=== PATIENT | female | born 1980 | race Caucasian/White ===

== ENCOUNTER 2017-09-22 07:48 | Outpatient (CLI) | payer BC ==
[2017-09-22] MEDS ORDERED: Iopamidol 370 76% 100 ML VIAL ONE (11:52)
--- NOTE | 2017-09-22 11:53 | CT ---
CT ANGIOGRAM NECK WITH CONTRAST: 09/22/2017 8:53 a.m. HISTORY: A 36-year-old female with near syncope (R55). COMPARISON: None. TECHNIQUE: IV contrast bolus injection of 100 mL of Isovue-370. Arterial bolus chasing technique scan performed from 3 cm inferior to the montez to the level of the mid-upper orbits. Coronal and sagittal 3D MIP reconstructions. FINDINGS: No calcified or noncalcified significant atherosclerotic plaque is visualized. The aortic arch, and the brachiocephalic, left subclavian, bilateral common carotid, bilateral internal carotid, and bilat eral vertebral, arteries are of normal caliber, with no stenosis or dissection. Segments of the mid and distal right subclavian artery are obscured by streak artifact from contrast bolus in the adjacen t right subclavian vein. The proximal right subclavian artery is of normal caliber. There is no ano radha of great vessel origins. The lung apices are clear. No major osseous abnormality. No gross ab normality of the soft tissues of the neck identified. IMPRESSION: Normal. POS: BIBI
== END 2017-09-22 07:49 | disposition home or self-care (01) ==
LOC: CT 07:48
PROVIDERS: ATTEND Psychiatry & Neurology Neurology
DX: R55 Syncope and collapse (principal)
CPT/HCPCS: 70498

== ENCOUNTER 2018-02-13 20:36 | Inpatient (IN) | payer BC ==
[2018-02-13 21:28] LABS: #Basophils 0.1 thou/uL (0.0-0.2); #Eosinphils 0.3 thou/uL (0.0-0.7); #Lymphocytes 3.6 thou/uL (1.20-3.40); #Monocytes 0.8 thou/uL (0.11-0.59); #Neutrophils 5.6 thou/uL (1.40-6.50); %Basophils 0.8 % (0.0-1.0); %Eosinophils 2.5 % (0.0-10.0); %Lymphocytes 34.9 % (21.0-51.0); %Monocytes 7.8 % (0.0-10.0); Hemoglobin 12.8 g/dL (12.0-16.0); Mean Corpuscular HGB CONC 32.9 g/dL (32.0-36.0); Mean Corpuscular Hemoglobin 29.3 pg (27.0-31.0); Mean Corpuscular Volume 88.8 fL (78.0-98.0); Mean Platelet Volume 9.8 fL (7.4-10.4); Platelet Count 275 thou/uL (130-400); RBC Distribution Width 12.4 % (11.5-14.5); Red Blood Cell (RBC) Count 4.37 mill/uL (4.20-5.40); White Blood Cell (WBC) Count 10.3 thou/uL (4.8-10.8)
[2018-02-13 21:32] LABS: BHCG - Serum Negative (NEGATIVE); Pregs Control Background? CLEAR/WHITE (CLR/WHITE); Pregs Control Bar Appear? YES (CONTROL BAR)
[2018-02-13 21:50] LABS: ALT (SGPT) 15 U/L (8-55); AST (SGOT) 19 U/L (5-34); Albumin 4.5 g/dL (3.5-5.0); Alkaline Phosphatase 100 U/L (40-150); Anion Gap 14 mmol/L (10-20); BUN (Urea Nitrogen) 11 mg/dL (7.0-18.7); Bilirubin, Total 0.2 mg/dL (0.2-1.2); Calc. Creatinine Clearance 0 mL/min (70-130); Calcium 9.4 mg/dL (7.8-10.44); Carbon Dioxide 22 mmol/L (22-29); Chloride 108 mmol/L (98-107); Estimated GFR-MDRD 86; Globulin 3.8 g/dL (2.4-3.5); Glucose 73 mg/dL (70-105); Lipase 57 U/L (8-78); Potassium 3.9 mmol/L (3.5-5.1); Protein, Total 8.3 g/dL (6.0-8.3); Sodium 140 mmol/L (136-145)
[2018-02-13 21:53] LABS: Bilirubin Negative (Negative); Blood, Urine Negative (Negative); Clarity CLEAR (Clear); Glucose, Urine (Dipstick) Negative (Negative); Leukocyte Negative (Negative); Nitrite Negative (Negative); Protein, Urine (Dipstick) Negative (Neg-Trace); Specific Gravity, Urine 1.007 (1.002-1.036); Urobilinogen 0.2 mg/dL (0.2-1.0)
--- NOTE | 2018-02-13 23:13 | CT ---
CT ABDOMEN AND PELVIS WITH CONTRAST: HISTORY: Seven days of abdominal bloating and abdominal pain. TECHNIQUE: Multiple contiguous axial images were obtained in a CT of the abdomen and pelvis with contrast, Cont rast was administered p.o. Coronal reformats were performed. FINDINGS: There is a 1.5 cm hypodensity in the spleen, which likely represents a cyst. The liver, gallbladder, kidneys, adrenal glands, and pancreas are unremarkable. No free air, free fluid, or stranding mooney es are seen in the abdomen or pelvis. There are masses in the uterus, measuring up to 7.1 cm in size, which likely represent large fibroids . The large and small bowel are unremarkable. The appendix is normal. No abdominal or pelvic lymph adenopathy is seen. The osseous structures, visualized inferior thorax, and abdominal wall soft tissues are unremarkable. IMPRESSION: 1. Fibroid uterus. 2. Splenic cyst. POS: BIBI
[2018-02-13] MEDS ORDERED: diphenhydrAMINE 50 MG/ML VIAL ONE (23:45)
[2018-02-13] MEDS ORDERED: Metoclopramide HCl 10 MG/2 ML VIAL ONE (23:45)
[2018-02-13] MEDS ORDERED: Benzocaine 20% Spray 60 ML CAN ONE (23:53)
[2018-02-14] MEDS ORDERED: Metoclopramide HCl 10 MG/2 ML VIAL IVP PRN (01:14)
[2018-02-14] MEDS ORDERED: Ondansetron PF 4 MG/2 ML Vial IVP PRN (01:14)
[2018-02-14] MEDS ORDERED: Dextrose 5 % And 0.9 % NaCl 1,000 ML IV SCH (01:15)
--- NOTE | 2018-02-14 01:27 | PDOC.FPRHP ---
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 She states that the bloating started 1 week ago and has been constant since then. She denies ever having any problem like this before. She states that nothing makes the bloating better or worse. She denies nausea or vomiting but reports constipation. 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 denies: fever/chills Eyes: denies: eye pain, vision changes ENT: denies: nasal congestion, rhinorrhea Respiratory: denies: cough, congestion, shortness of breath Cardiovascular: denies: chest pain, palpitation Gastrointestinal: reports: constipation, abdominal pain. denies: nausea, vomiting, diarrhea, GI bleeding Genitourinary: denies: incontinence, dysuria Skin: denies: rashes, lesions Musculoskeletal: denies: pain, tenderness Neurological: denies: numbness, syncope Psychological: denies: anxiety, depression - Vital signs BP: 124/86 HR: 96 RR: 16 Tmax: 98.5 Pox: 99% on ra Wt: 55.7 kg - Physical Exam Constitutional: NAD, awake, alert and oriented HEENT: normocephalic and atraumatic, MMM, good dention, other (NG tube in place) Neck: trachea midline Chest: no lesions Heart: RRR, normal S1/S2, no murmurs/rubs/gallops Lungs: CTAB, no respiratory distress, good air movement Abdomen: soft, bowel sounds present, no masses/distention, other (diffuse tenderness to palpation, no rebound) Musculoskeletal: normal structure, normal tone, ROM grossly normal Neurological: CN II-XII intact Skin: no rash/lesions, good turgor Heme/Lymphatic: no unusual bruising or bleeding Psychiatric: normal mood and affect, good judgment and insight FMR H&P: Results - Labs Result Diagrams: 02/13/18 21:17 02/13/18 21:17 Lab results: WBC 10.3 thou/uL (4.8-10.8) 02/13/18 21:17 Hgb 12.8 g/dL (12.0-16.0) 02/13/18 21:17 Hct 38.8 % (36.0-47.0) 02/13/18 21:17 MCV 88.8 fL (78.0-98.0) 02/13/18 21:17 Plt Count 275 thou/uL (130-400) 02/13/18 21:17 Neutrophils % 54.0 % (42.0-75.0) 02/13/18 21:17 Sodium 140 mmol/L (136-145) 02/13/18 21:17 Potassium 3.9 mmol/L (3.5-5.1) 02/13/18 21:17 Chloride 108 mmol/L (98-107) H 02/13/18 21:17 Carbon Dioxide 22 mmol/L (22-29) 02/13/18 21:17 BUN 11 mg/dL (7.0-18.7) 02/13/18 21:17 Creatinine 0.75 mg/dL (0.6-1.1) 02/13/18 21:17 Glucose 73 mg/dL (70-105) 02/13/18 21:17 Calcium 9.4 mg/dL (7.8-10.44) 02/13/18 21:17 Total Bilirubin 0.2 mg/dL (0.2-1.2) 02/13/18 21:17 AST 19 U/L (5-34) 02/13/18 21:17 ALT 15 U/L (8-55) 02/13/18 21:17 Alkaline Phosphatase 100 U/L (40-150) 02/13/18 21:17 Serum Total Protein 8.3 g/dL (6.0-8.3) 02/13/18 21:17 Albumin 4.5 g/dL (3.5-5.0) 02/13/18 21:17 Lipase 57 U/L (8-78) 02/13/18 21:17 Urine Ketones Negative mg/dL (Negative) 02/13/18 21:43 Urine Blood Negative (Negative) 02/13/18 21:43 Urine Nitrite Negative (Negative) 02/13/18 21:43 Ur Leukocyte Esterase Negative (Negative) 02/13/18 21:43 - Radiology Interpretation CT scan - abdomen Status: report reviewed by me (Fibroid uterus, splenic cyst, distended stomach) FMR H&P: A/P - Problem List (1) Gastroparesis Current Visit: Yes Status: Acute Code(s): K31.84 - GASTROPARESIS - Plan This is a 37 yo female with a pmh of GERD and 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 Pt was given the option of going home and following up with GI outpt or being admitted and having a scope later today. She opted for admission -NG tube for stomach decompression. NPO, meds with sips of water, clamp NG tube for 30 minutes after giving medications -Consult Dr. Webb with plan for endoscopy later today -PRN reglan and zofran for symptom relief GERD -IV pepcid Possible rosales tachycardia -Continue home meds -Obtain EKG if pt becomes tachycardic Code: Full Prophylaxis: pepcid, SCDs Family: at bedside, assessment and plan discussed with him Disposition: home in 1-2 days FMR H&P: Upper Level - Pertinent history 37F p/w one week history of increasing abdominal bloating and pain. She describes a diffuse pain that is achy in nature, but worsened overnight two nights ago to the point that it woke her from sleep. She denies any nausea or vomiting. No prior episodes of these symptoms. The bloating and distention worsen with PO intake. No hematemesis, melena, or hematochezia. She denies any change in stool caliber, but endorses some constipation. Denies recent fevers, unexplained weight loss, fatigue, or skin rash. Prior history of EGD with h.pylori testing in 2014 that was negative. No abdominal surgeries. ED: benadryl 25mg, reglan 10mg ED physician spoke with GI who recommended outpatient f/u versus admitting for planned endoscopy - Pertinent findings CBC, CMP, and UA wnl WBC: 10.3 Lipase: 57 serum hcg: negative CT abd/pelvis: negative - Plan Date/Time: 02/14/18 0126 I, Champ Ryan, have evaluated this patient and agree with findings/plan as outlined by director internal audit resident. Pertinent changes/additions are listed here. Abdominal distention 2/2 to possible nonulcer dyspepsia -plan for EGD with H.pylori testing; does not appear to be caused by meds, pancreatitis, diabetic gastroparesis, or any other organic etiology -consider PPI, TCA, or prokinetics -no dysphagia or regurgitation suggesting achalasia or other esophageal pathology -history of mild GERD with occasional use of omeprazole but no heartburn, cough , or laryngitis -no hx of DM to suggest diabetic gastroparesis -CT abd/pelvis inconsistent with SBO and patient is having BMs Sinus tachycardia 2/2 to possible postural orthostatic tachycardia syndrom -followed by Dr. Muniz for some time -has been evaluated by EP who recommends against ablation at this time -HR in the 's in the ED -continue metoprolol; ivabradine has been d/c while patient pursues possible Addendum - Attending - Attending Attestation Date/Time: 02/14/18 1152 I personally evaluated the patient and discussed the management with Dr. Barragan I agree with the History, Examination, Assessment and Plan documented above with any addition or exceptions noted below- 37 yo female with GERD presented with 1 week h/o abdominal bloating and cramping unrelieved by OTC medications. Denies any diarrhea. Does report constipation. Denies any N/V. PMH/PSH/Meds/All reviewed and agree with resident's documentation. Afebrile VSS Exam repeated by me and agree with resident's findings. Labs- CMP and CBC within normal limits. CT abd/pelvis- preliminary read- distended gastric bubble. A/P: 1) Abdominal bloating- GI consulted by ER; plan for EGD. Potential discharge later today.
[2018-02-14] MEDS ORDERED: Chloraseptic Spray 180 ml Bottle PO PRN (01:36)
[2018-02-14] MEDS: Sodium Chloride 0.9% 1,000 ML IV SCH ×3 (01:57→21:31)
[2018-02-14] MEDS ORDERED: Famotidine/PF 20 mg/2ml Vial SLOW IVP SCH ×2 (02:00→09:00)
[2018-02-14 02:11] VITALS: BMI 23.1
[2018-02-14] MEDS ORDERED: Midazolam HCl 2 mg/2 ml Vial ONE (13:48)
[2018-02-14] MEDS ORDERED: FLUoxetine HCl 10 MG CAP PO PRN (15:21)
[2018-02-14] MEDS ORDERED: Tranexamic Acid 650 MG TAB PO PRN (15:21)
[2018-02-14] MEDS ORDERED: Metoprolol Tartrate 25 MG TAB PO SCH (16:45)
--- NOTE | 2018-02-14 18:30 | OP ---
DATE OF PROCEDURE: 02/14/2018 PROCEDURES PERFORMED: Esophagogastroduodenoscopy with biopsy. INDICATIONS FOR PROCEDURE: Nausea, vomiting, and abnormal GI imaging. DESCRIPTION OF PROCEDURE: After the risks and benefits of the procedure were explained to the patient including risks of bleeding, infection, perforation, reactions to anesthesia, aspiration and/or pain, informed consent was obtained. The patient was then taken to the endoscopy suite, where general anesthesia was administered via Anesthesia support with endotracheal tube intubation. Once the patient was adequately sedated and intubated, she was placed in the left lateral decubitus position in preparation for the upper endoscopy. The standard gastroscope was then introduced into the mouth with intubation of the esophagus, stomach, and proximal small intestine with the findings listed below. The patient tolerated the procedure well with no immediate perioperative complications. After the procedure, the patient was successfully extubated and transferred to PACU in satisfactory condition. FINDINGS: Esophagus: Normal-appearing mucosa was seen in the proximal, mid, and distal esophagus. There was no evidence of erosions, ulcerations, mass, lesions, stricture/stenosis, or active/recent bleeding. Stomach: Normal-appearing mucosa was seen in the gastric cardia, fundus, body, greater curvature, antrum, and incisura. There was no evidence of erosions, ulcerations, mass, lesions, stricture/stenosis, or active/recent bleeding. Given the unknown etiology of the significant gastric distention, multiple random gastric biopsies were obtained from the gastric antrum, body, and fundus for evaluation of possible H. pylori and/or infiltrative process. Duodenum: Normal-appearing mucosa was seen in both the duodenal bulb and second portion of the duodenum. There was no evidence of erosions, ulcerations, mass, lesions, stricture/stenosis, or active/recent bleeding. IMPRESSION: 1. Normal upper endoscopy. 2. No etiology for the patient's nausea, vomiting, or abnormal GI imaging was seen during this examination. RECOMMENDATIONS: 1. We would place the patient on a clear liquid diet and advance diet as tolerated. 2. We would hold on replacing the NG-tube at this point and evaluate for symptoms. 3. If the patient has return of symptoms, we would consider a small bowel followthrough at that time for possible small bowel obstruction. 4. We would continue pantoprazole 40 mg b.i.d. 5. We would consider gastric emptying study, but this does not necessarily need to be ordered while inpatient. We will continue to follow. Please call with any questions. Job ID: [id number]
--- NOTE | 2018-02-14 18:36 | CON ---
DATE OF CONSULTATION: 02/14/2018 REASON FOR CONSULTATION: Abdominal distention, abnormal GI imaging. CONSULTING PHYSICIAN: Dr. Anette Johnson. HISTORY OF PRESENT ILLNESS: The patient is a 37-year-old female with past medical history of anxiety, depression, and POTS tachycardia, presenting with complaints of increased abdominal bloating/distention. She states that she was in her usual state of health until approximately seven days ago when she experienced increased abdominal bloating and abdominal distention with unknown causative etiology. She states that over the next seven days, it progressively worsened to include a midepigastric abdominal pain that was characterized as a dull, constant type sensation, would radiate to the generalized abdomen, and would reach a severity of approximately 3 to 4/10. The pain was worse with eating and lying down, better with nausea and vomiting and the placement of NG tube during this hospitalization. Upon further questioning of the patient, she states that she had been having this abdominal distention/bloating for the last 3 to 6 months that was occurring intermittently but had resolved with the use of omeprazole. She states that she has been having approximately one bowel movement per day that was semi-solid/solid in consistency with no difficulty with defecation; however, she does endorse constipation characterized as a sensation to have a bowel movement without actually having a bowel movement. Currently, she has tried omeprazole, Tums, milk of magnesia, and papaya enzyme all without significant symptom relief. With a lack of symptom relief and increasing abdominal distention, it prompted her to seek out admission into [facility]. On admission, she was noted to have a CT scan showing significant abdominal distention as well as a large fibroid within the uterus, which may or may not be contributing to her current clinical situation. She did have some vomiting after the placement of an NG tube during this admission with significant release in her abdominal distention and pain at that time. Currently, she denies any nausea, vomiting, fevers, chills, shortness of breath, dysphagia, odynophagia, diarrhea, constipation, or GI bleeding. Of note, the patient underwent both an upper endoscopy and a 24-hour pH monitoring study in 2013 in [place], both of which were normal. REVIEW OF SYSTEMS: A 10-category review of systems was obtained with all responses negative except for the pertinent positives as listed in HPI. PAST MEDICAL HISTORY: As per HPI. PAST SURGICAL HISTORY: None. FAMILY HISTORY: Denies any GI malignancies. SOCIAL HISTORY: Denies any tobacco, alcohol, or illicit drug use. OUTPATIENT MEDICATIONS: 1. Fluoxetine 10 mg daily. 2. Metoprolol 12.5 mg daily. 3. Chloraseptic spray as needed. 4. Tranexamic acid (Lysteda) 650 mg daily. 5. She also endorses the use of frequent Advil for menstrual and migraine pain, which she has been taking for the last year. ALLERGIES: NO KNOWN DRUG ALLERGIES. PHYSICAL EXAMINATION: VITAL SIGNS: Temperature 98.8, pulse 88, blood pressure 107/73, respiratory rate 18, and saturating 98% on room air. GENERAL: The patient was lying in bed, in no acute distress. Alert and oriented x4. NG tube was seen emanating from the right nostril. HEENT: Neck supple. No JVD or scleral icterus noted. CARDIOVASCULAR: Regular rate and rhythm with no discernible murmurs, gallops, or rubs. RESPIRATORY: Clear to auscultation bilaterally with no discernible wheezes or rales. ABDOMEN: Normoactive bowel sounds. Soft. Minimal abdominal distention. Mild tenderness to palpation in the midepigastric region. EXTREMITIES: No cyanosis, clubbing, or edema. LABORATORY DATA: CBC with a white blood cell count of 10.3, hemoglobin 12.8, hematocrit 38.8, and platelets 275. Chemistry with a sodium of 140, potassium 3.9, chloride 108, CO2 of 22, BUN 11, creatinine 0.75, glucose 73, AST 19, ALT 15, alkaline phosphatase 100, total bilirubin 0.2, and lipase 57. IMAGING DATA: CT of the abdomen and pelvis obtained on February 13, 2018, showed masses in the uterus measuring up to 7.1 cm in size consistent with large fibroids. Meanwhile, no mention of significant gastric distention was noted. Upon my review, there was significant enlargement of the gastric fundus and body along with increased amounts of contrast/food debris within the greater curvature. ASSESSMENT AND PLAN: The patient is a 37-year-old female with past medical history of anxiety, depression, and POTS tachycardia presenting with abdominal distention/pain and abnormal GI imaging concerning for possible gastric outlet obstruction. Abdominal distention/abnormal GI imaging. The patient is presenting with acute onset of increased abdominal bloating that has been slowly worsening over the last seven days, but had been occurring intermittently for the last 3 to 6 months that was relieved with PPI use. Over the last seven days, she has had increased abdominal distention accompanied by increased midepigastric abdominal pain that was generalized to the abdomen itself. She has been taking frequent NSAIDs for both premenstrual type pains as well as migraines, which could further contribute to the current clinical process and she also has the presence of large fibroids within the uterus that could be potentially compressing certain portions of the small intestine and thereby backing things up into the stomach and creating abdominal distention that way via partial small bowel obstruction (however, this is unlikely). The current differential could include gastritis, gastroparesis, peptic ulcer disease via NSAIDs and gastric outlet obstruction, partial small bowel obstruction (less likely) and/or GI neoplasm. RECOMMENDATIONS: 1. Would continue the patient on n.p.o. status and clamp NG tube for now. 2. We will plan for EGD later on today for intraluminal evaluation of the stomach. We will plan for general anesthesia and endotracheal intubation given the imaging showing a large amount of contrast and food debris within the stomach. 3. Would continue acid suppression, but we will transfer to PPI b.i.d. 4. Further recommendations to follow upper endoscopy. We will continue to follow. Please call with any questions. Job ID: [id number]
[2018-02-14] MEDS: Pantoprazole 40 MG VIAL IVP SCH (21:04)
[2018-02-15] MEDS: Sodium Chloride 0.9% 1,000 ML IV SCH ×2 (01:01→09:23)
[2018-02-15] MEDS ORDERED: Acetaminophen 325 MG TAB PO PRN (06:41)
--- NOTE | 2018-02-15 08:53 | PDOC.FM ---
- Subjective Subjective: No acute events overnight. Endorses continued dull abd pain /, protonix has been helping. Tolerated clear liquid diet yesterday. No n/v/d. Hungry, wants to advacne diet. No blood in stool or melena. - Objective MAR Reviewed: Yes Vital Signs & Weight: Vital Signs (12 hours) Temp Pulse Resp BP Pulse Ox 02/15/18 08:00 97.6 F 83 16 114/75 97 02/15/18 01:00 98.7 F 91 16 102/68 96 Weight Weight 55.565 kg I&O: 02/14/18 02/15/18 02/16/18 06:59 06:59 06:59 Intake Total 400 1500 Output Total 50 3 Balance 350 1497 Result Diagrams: 02/13/18 21:17 02/13/18 21:17 Phys Exam - Physical Examination Constitutional: NAD HEENT: PERRLA, moist MMs Respiratory: no wheezing, clear to auscultation bilateral Cardiovascular: RRR, no significant murmur Gastrointestinal: soft, no distention mildly tender diffusely, no rebound or guarding Neurological: non-focal, moves all 4 limbs Psychiatric: normal affect, A&O x 3 Skin: no rash, normal turgor Dx/Plan (1) Abdominal pain Code(s): R10.9 - UNSPECIFIED ABDOMINAL PAIN Status: Acute (2) Non-ulcer dyspepsia Status: Acute (3) Gastroparesis Code(s): K31.84 - GASTROPARESIS Status: Acute (4) GERD (gastroesophageal reflux disease) Code(s): K21.9 - GASTRO-ESOPHAGEAL REFLUX DISEASE WITHOUT ESOPHAGITIS Status: Acute - Plan Plan: 37 yo F with abd. bloating likely 2/2 nonulcer dyspepsia Abdominal distention 2/2 to possible nonulcer dyspepsia -EGD 02/14: No visible ulcers -Pending H. pylori studies -Continue PPI BID -Experiencing abd bloating and mild pain, will try bentyl -No other GI sxs, stable otherwise -Advance diet, see how tolerates -Continued outpatient GI workup Sinus tachycardia 2/2 to possible postural orthostatic tachycardia syndrome -Pulse stable, asx otherwise -Has been receiving outpt f/u with Dr. Muniz, rx continue this -Continue home metoprolol tartrate Anxiety -Continue home prozac dvt ppx: not indicated discussed with Dr. Tolliver Addendum - Attending - Attending Attestation Date/Time: 02/15/18 1411 I personally evaluated the patient and discussed the management with Dr. Loyola I agree with the History, Examination, Assessment and Plan documented above with any addition or exceptions noted below- Patient still having some abdominal discomfort but improved. Tolerated clears yesterday and regular breakfast. Probable d/c later today.
[2018-02-15] MEDS ORDERED: Metoprolol Tartrate 25 MG TAB PO SCH (09:00)
[2018-02-15] MEDS: Pantoprazole 40 MG VIAL IVP SCH (10:41)
[2018-02-15] MEDS ORDERED: Dicyclomine 10 MG CAP PO SCH ×2 (11:00→13:00)
[2018-02-15 16:58] VITALS: BP 108/73; TEMP 98.6
--- NOTE | 2018-02-16 08:54 | DIS ---
DATE OF ADMISSION: 02/13/2018 DATE OF DISCHARGE: 02/15/2018 RESIDENT: Teodora Loyola MD, PGY-1. ADMITTING ATTENDING: Jett Burrell MD DISCHARGE ATTENDING: Patricia Tolliver MD CONSULTS: Gastroenterology, Dr. Cassidy. PROCEDURES: EGD, on 02/14. PRIMARY DIAGNOSES: 1. Abdominal bloating secondary to the mild gastritis. 2. POTS tachycardia. 3. Gastroesophageal reflux disease. DISCHARGE MEDICATIONS: 1. Prozac 10 mg p.o. daily p.r.n. for anxiety. 2. Tranexamic acid 650 mg p.o. daily p.r.n. 3. Metoprolol tartrate 12.5 mg p.o. daily. 4. Omeprazole 40 mg p.o. b.i.d. 5. Bentyl 10 mg p.o. q.i.d. p.r.n. for abdominal distention. HISTORY OF PRESENT ILLNESS/HOSPITAL COURSE: This is a 37-year-old female with history of GERD, presented to the ED for abdominal bloating of 1-week duration that had become constant since then. No aggravating or alleviating factors. Workup was within normal limits. GI was consulted and recommended EGD with H pylori testing of which results were negative for H. pylori and showed mild gastritis. It was recommended to follow for further outpatient testing with gastric emptying test. There were no other causes found to be the source of the patient's symptoms. The patient's symptoms mildly improved with omeprazole and Bentyl. The patient tolerated full diet with no problems and felt ready to go home upon discharge. DISPOSITION: Stable. DISCHARGE INSTRUCTIONS: 1. Location: Home. 2. Diet: Regular diet. 3. Activity: Ad cinthya. 4. Follow up: Please follow up with Dr. Cassidy and with PCP, Dr. Tolliver. Please consider gastric emptying test for continued symptoms. Job ID: [id number] [facility]
== END 2018-02-15 17:32 | disposition home or self-care (01) | DRG 392 ==
LOC: ERS 20:36 → T4-A 23:45
PROVIDERS: ADMIT Family Medicine; ATTEND Family Medicine
PROC: 0DB68ZX Excision of Stomach, Via Natural or Artificial Opening Endoscopic, Diagnostic (ICD-10-PCS; principal; 2018-02-14)
DX: K30 Functional dyspepsia (principal); K31.84 Gastroparesis; K21.9 Gastro-esophageal reflux disease without esophagitis; F41.9 Anxiety disorder, unspecified; F32.9 Major depressive disorder, single episode, unspecified; G43.909 Migraine, unspecified, not intractable, without status migrainosus; I49.8 Other specified cardiac arrhythmias; Z79.899 Other long term (current) drug therapy
CPT/HCPCS: 74177; 80053; 81003; 83690; 84703; 85025; 88305; 88312; 96365; 96375; C9113; J1200; J2250; J2765; S0028

== ENCOUNTER 2018-03-15 07:52 | Outpatient (CLI) | payer BC ==
--- NOTE | 2018-03-15 13:09 | NM ---
RADIONUCLIDE GASTRIC EMPTYING STUDY: HISTORY: Abdominal distention. Pain. Gastroparesis. FINDINGS: Anterior planar images show good mixing of radiotracer within the stomach. Half-like emptying of the stomach of solid material is 54 minutes. Emptying is as follows: TIME PERCENT EMPTYING 30 minutes 31% 60 minutes 57% 2 hours 79% 3 hours 99% IMPRESSION: Normal radionuclide gastric emptying exam. POS: [facility]
== END 2018-03-15 07:53 | disposition home or self-care (01) ==
LOC: NM 07:52
PROVIDERS: ATTEND Internal Medicine
DX: R14.0 Abdominal distension (gaseous) (principal); R93.3 Abnormal findings on diagnostic imaging of other parts of digestive tract
CPT/HCPCS: 78264; A9541

== ENCOUNTER 2018-03-30 13:38 | Outpatient (CLI) | payer BC ==
[~2018-03-30 13:38] MED LIST: Gadobenate Dimeglumine 529 MG/1 ML (20ML VIAL) ONE
--- NOTE | 2018-03-30 15:43 | MRI ---
MRI PELVIS WITH AND WITHOUT CONTRAST: HISTORY: Leiomyoma of the uterus. COMPARISON: CT abdomen and pelvis from 02/13/2018. TECHNIQUE: Multiplanar, multisequence MR images were obtained of the pelvis with and without IV contrast. FINDINGS: There is an arcuate uterus. There is a large fibroid in the right aspect of the uterus, which is exo phytic and measures 8.2 cm in greatest dimension. A smaller exophytic uterine fibroid, measuring 2.5 cm in size, emanates from the uterine fundus. The junctional zone of the uterus is normal in thickness. No free fluid is seen in the pelvis. Both ovaries are normal in appearance and have normal appearing follicles. No pelvic adenopathy is seen. No marrow signal abnormality is present. IMPRESSION: Uterine fibroids. POS: BIBI
== END 2018-03-30 13:39 | disposition home or self-care (01) ==
LOC: BICMRI 13:38
PROVIDERS: ATTEND Obstetrics & Gynecology Gynecology
DX: D25.9 Leiomyoma of uterus, unspecified (principal)
CPT/HCPCS: 72197; A9577

== ENCOUNTER 2018-04-01 20:30 | Outpatient (CLI) | payer BC | END 2018-04-01 20:31 | disposition home or self-care (01) | LOC: SLEEPLAB 20:30 | PROVIDERS: ATTEND Internal Medicine Pulmonary Disease | DX: G47.33 Obstructive sleep apnea (adult) (pediatric) (principal); R53.83 Other fatigue; R06.83 Snoring; F41.8 Other specified anxiety disorders | CPT/HCPCS: 95810 ==

== ENCOUNTER 2018-08-08 08:14 | Outpatient (CLI) | payer BC ==
--- NOTE | 2018-08-08 08:51 | RAD ---
RIGHT HIP 2 VIEWS: HISTORY: Pain right leg. History of osteoporosis and bursitis. FINDINGS/IMPRESSION: No fracture, dislocation, or other significant acute osseous abnormality. POS: C
--- NOTE | 2018-08-08 08:59 | BD ---
DEXA DENSITOMETRY: HISTORY: Premenopausal patient treated for osteoporosis. Pain in right leg. FINDINGS: LUMBAR SPINE BMD (g/cm2) T-SCORE L1 0.750 -2.2 L2 0.773 -2.3 L3 0.780 -2.8 L4 0.816 -2.2 TOTAL 0.781 -2.4 FEMORAL NECK 0.662 -1.7 TOTAL 0.838 -0.8 IMPRESSION: 1. The bone mineral density of the lumbar spine indicates osteopenia. 2. The bone mineral density of the femoral neck indicates osteopenia. POS: [facility]
== END 2018-08-08 08:15 | disposition home or self-care (01) ==
LOC: BICMAMMO 08:14
PROVIDERS: ATTEND Internal Medicine Rheumatology
DX: M81.0 Age-related osteoporosis without current pathological fracture (principal); M79.604 Pain in right leg; M85.89 Other specified disorders of bone density and structure, multiple sites
CPT/HCPCS: 77080

== ENCOUNTER 2018-09-18 07:30 | Outpatient (CLI) | payer BC ==
--- NOTE | 2018-09-18 08:57 | MRI ---
MRI lumbar spine noncontrast: HISTORY: Lumbar radiculopathy, symptoms involving the right lower extremity. Pain. COMPARISON: None FINDINGS: Appropriate T1 marrow signal intensity of the lumbar vertebra. Lumbar spine vertebral body height is maintained. No fracture. No significant STIR hyperintensity to suggest vertebral body edema or ligamentous injury Appropriate signal intensity visualized paraspinal muscles and solid organs Conus medullaris terminates at the mid L2 level T12-L1:No significant central canal stenosis or neural foraminal narrowing L1-L2:Adequate disc hydration. No significant central canal stenosis or neural foraminal narrowing L2-L3:Adequate disc hydration. No significant central canal stenosis or neural foraminal narrowing L3-L4:Adequate disc hydration. No significant central canal stenosis or neural foraminal narrowing. L4-L5:Adequate disc hydration. No significant central canal stenosis or neural foraminal narrowing L5-S1:Adequate disc hydration. No significant central canal stenosis or neural foraminal narrowing IMPRESSION: No significant central canal stenosis or neural foraminal narrowing
== END 2018-09-18 07:31 | disposition home or self-care (01) ==
LOC: BICMRI 07:30
PROVIDERS: ATTEND Orthopaedic Surgery
DX: M54.16 Radiculopathy, lumbar region (principal)
CPT/HCPCS: 72148

== ENCOUNTER 2019-07-28 03:00 | Inpatient (IN) | payer BC ==
--- NOTE | 2019-07-28 03:37 | PDOC.FPROB ---
FMR OB H&P: HPI - History of Present Illness Chief Complaint: ctx Indentification: 38 y/o @ 37.1 WGA History of Present Illness: Pt reports she started basil around 2330 every 2-10 min. She has a h/o myomectomy and is scheduled for in 8 days due to this. Denies LOF, VB, d/c. +FM. Primary Care Physician: Dr. Ortiz FMR OB H&P: Current - Care : 1 Para: 0 Course/Complications: IVF FMR OB H&P: History - Past Medical History PMH: Tachycardia Migraines GERD Osteopenia Osteoporosis - OB History OB History: G1, this is due to IVF. - Surgical History Sx History: Open myomectomy - 2019 - Social History Social History: Denies tobacco, EtOH, drug use - Family History Family History: Denies FMR OB H&P: Medications - Current Allergies/Adverse Reactions: Allergies Allergy/AdvReac Type Severity Reaction Status Date / Time No Known Allergies Allergy Verified 02/14/18 01:40 FMR OB H&P: ROS - Review of Systems General: denies: fever/chills, weight/appetite/sleep changes Eyes: denies: vision changes, double vision ENT: denies: nasal congestion, rhinorrhea Cardiovascular: denies: chest pain, edema Respiratory: denies: cough, shortness of breath Gastrointestinal: denies: nausea, vomiting, diarrhea Genitourinary (Female): reports: contractions. denies: dysuria, hematuria, vaginal discharge, vaginal bleeding Musculoskeletal: denies: pain, swelling Neurologic: denies: numbness, weakness Integumentary: denies: itching, rash Hematologic/Lymphatic: denies: prolonged or excessive bleeding, enlarged lymph nodes Psychological: denies: depression, anxiety FMR OB H&P: Vital Signs - Maternal Vital signs: BP 133/76, HR 86, RR 16 - Heart Tones Baseline: 135 Variability: moderate Acceleration: present Deceleration: absent Category: category 1 [place] contractions every: 2-4 min FMR OB H&P: Physical Exam - Physical Exam General: NAD, awake, alert and oriented HEENT: normocephalic and atraumatic, MMM, conjunctiva clear, grossly normal vision, grossly normal hearing Neck: supple, no LAD Heart: pulses present, no edema General: no respiratory distress Abdomen: soft, gravid, non-tender Musculoskeletal: normal gait and station, pulses present Skin: good tugor, capillary refill <2 seconds Lymphatic: no unusual bruising or bleeding, no purpura Psychiatric: intact recent and remote memory, good judgement and insight - Pelvic Exam SVE: Closed/thick/high/firm/posterior FMR OB H&P: A/P - Problem List (1) Term Current Visit: Yes Status: Acute Code(s): Z34.90 - ENCNTR FOR SUPRVSN OF NORMAL , UNSP, UNSP TRIMESTER (2) with history of uterine myomectomy Current Visit: Yes Status: Acute Code(s): O34.29 - MATERNAL CARE DUE TO UTERINE SCAR FROM OTH PREVIOUS SURGERY (3) Uterine contractions Current Visit: Yes Status: Acute Code(s): EFY4692 - Disposition: Pt presents with regular contractions, but a closed cervix in the setting of a h /o open myomectomy scheduled for section on 08/04. -Will do extended monitoring of 3-4 hours -IV hydrate -Recheck after 3-4 hours and discuss case with Dr. Ortiz at that time -Continue monitoring Discussion: Date/Time: 07/28/19 0333 This H&P was discussed with Dr. Rodriguez who agrees with the above documentation and plan. Signature: Miladys Valencia MD, PGY-3
[2019-07-28] MEDS ORDERED: hydrALAZINE 20 MG/ML VIAL SLOW IVP PRN ×3 (04:03→09:09)
[2019-07-28] MEDS: Lactated Ringer's 1,000 ML IV SCH ×3 (04:15→12:24)
[2019-07-28] MEDS ORDERED: Promethazine HCl 25 MG/ML VIAL IM PRN ×2 (04:29→06:57)
[2019-07-28] MEDS ORDERED: Ondansetron PF 4 MG/2 ML Vial IVP PRN (04:29)
[2019-07-28] MEDS ORDERED: CEFAZOLIN 2 GM in Premix Bag 1 BAG IVPB SCH (04:30)
[2019-07-28] MEDS ORDERED: Bicitra 30 ML UDCUP PO SCH (04:30)
--- NOTE | 2019-07-28 04:32 | PDOC.BPN ---
- Brief Progress Note Discussed case with Dr. Ortiz who reviewed her strip and discussed with patient the decision to proceed with a section due to her persistent contractions with her history of myomectomy.
[2019-07-28 04:57] LABS: Hemoglobin 12.8 g/dL (12.0-16.0); Mean Corpuscular HGB CONC 33.1 g/dL (32.0-36.0); Mean Corpuscular Hemoglobin 30.6 pg (27.0-31.0); Mean Corpuscular Volume 92.2 fL (78.0-98.0); Mean Platelet Volume 9.1 fL (7.4-10.4); Platelet Count 247 thou/uL (130-400); RBC Distribution Width 13.1 % (11.5-14.5); White Blood Cell (WBC) Count 12.5 thou/uL (4.8-10.8)
[2019-07-28 05:38] LABS: HBSAg Index 0.13 S/CO (0-0.99); Hep B Surf Ag Non-Reactive S/CO (NonReactive); Syphilis Antibody Nonreactive (Nonreactive); Syphilis Antibody Index 0.02 S/CO (<1.00 Non-Reactive)
[2019-07-28] MEDS ORDERED: MORPHINE 5 MG/10 ML PF VIAL ONE (05:45)
[2019-07-28] MEDS ORDERED: Ketorolac Tromethamine 30 MG/ML VIAL ONE (05:46)
[2019-07-28] MEDS ORDERED: PHENYLEPHRINE-NS 100 MCG/ML 10 ML SYRINGE ONE (05:46)
[2019-07-28] MEDS ORDERED: Ondansetron PF 4 MG/2 ML Vial ONE ×2 (05:46→08:18)
[2019-07-28] MEDS ORDERED: Dexamethasone 4 mg/ml Vial ONE (05:46)
[2019-07-28] MEDS ORDERED: Oxytocin 10 UNITS/ML VIAL ONE (05:46)
[2019-07-28] MEDS ORDERED: Naloxone HCl 0.4 mg/ml Vial IV PRN (06:57)
[2019-07-28] MEDS ORDERED: diphenhydrAMINE 50 MG/ML VIAL IVP PRN (06:57)
[2019-07-28] MEDS ORDERED: Promethazine HCl 25 MG SUPP PR PRN (06:57)
[2019-07-28] MEDS ORDERED: HYDROmorphone 2 MG/ML VIAL SLOW IVP PRN (06:57)
[2019-07-28] MEDS ORDERED: Meperidine HCl/PF 25 MG/ML VIAL SLOW IVP PRN (06:57)
[2019-07-28] MEDS ORDERED: Ondansetron HCl/PF 4 MG/2 ML Vial IVP PRN (06:57)
[2019-07-28] MEDS ORDERED: Naloxone HCl 0.4 mg/ml Vial IVP PRN ×2 (06:57)
[2019-07-28] MEDS ORDERED: L&D-Morphine 4 MG/ML VIAL SLOW IVP PRN (06:57)
--- NOTE | 2019-07-28 06:58 | PDOC.OPDEL ---
OB Operative/Delivery Note Delivery Dr/Surgeon: Angel Assist: Miladys Valencia Pre-Delivery Diagnosis: other (Early labor. Prior myomectomy) Procedure/Post Delivery Dx: primary low transverse CS Weeks gestation: 37 Anesthesia: spinal - Findings A Sex: male Weight: 5 lb 6 oz - 1 min: 8 - 5 min: 9 - Additional Findings/Plan Placenta delivered: manual removal findings: low transverse hysterotomy with extension
--- NOTE | 2019-07-28 07:36 | OP ---
DATE OF PROCEDURE: 07/28/2019 PREOPERATIVE DIAGNOSES: 1. 38-year-old female, G1, P0, at 37-38 weeks. 2. Prior history of uterine myomectomy. 3. Currently in vitro fertilization assisted . 4. Repetitive contractions consistent with early labor. POSTOPERATIVE DIAGNOSES: 1. 38-year-old female, G1, P0, at 37-38 weeks. 2. Prior history of uterine myomectomy. 3. Currently in vitro fertilization assisted . 4. Repetitive contractions consistent with early labor. PROCEDURES PERFORMED: Primary low transverse section without extension. DIRECTOR OF BUSINESS DEVELOPMENT SURGEON: Miladys Valencia MD ANESTHESIA: Spinal block. QUANTITATIVE BLOOD LOSS: 600 mL. COUNTS: Correct x2. ANTIBIOTICS: 2 g Ancef, on-call to OR. FINDINGS: 1. Vigorous male infant, vertex presentation, Apgars 8 and 9. weight 5 pounds 6 ounces. Clear amniotic fluid noted. 2. Normal-appearing fallopian tubes and ovaries. 3. Sick lower uterine segment noted with no separation and prior myomectomy sites. DISPOSITION: Recovery room, stable. DESCRIPTION OF PROCEDURE: The patient was taken back to the operating room, where she received a spinal block. She was placed in the supine position, prepped and draped in usual sterile fashion with Londono catheter and SCDs being placed. A Pfannenstiel incision was made through the previous scar site. This was taken down the fascia. Fascia was nicked in the midline. Fascial incision was extended bilaterally with the use of curved Trevino scissors. The rectus fascia was then dissected superiorly and inferiorly off the rectus muscle bellies. The rectus muscle bellies were then incised and divided in the midline. The peritoneal cavity was entered. An Jac O retractor was placed for retraction. The bladder flap was created in usual fashion. A 2 cm lower uterine segment hysterotomy incision was made. The myometrium was firm and stick and then this was via finger fractionation and then a bandage scissors were utilized to extend the hysterotomy incision to allow for delivery of the head. The amniotic bag was ruptured of clear fluid. The baby was delivered in the vertex presentation, and mouth and nares of the were bulb suctioned on the abdomen. Cord was doubly clamped and cut, and the baby was handed to the pediatric nurses in attendance. Usual cord blood was obtained. The placenta was manually extracted. The uterus curetted of any remaining placental fragments with a dry laparotomy sponge. Hysterotomy incision was then closed with #1 Monocryl in a running locking fashion. A double-layer closure was obtained. The pelvis was irrigated and hemostasis was confirmed. The Jac O retractor was removed. Any areas of oozing on the hysterotomy site were made hemostatic prior to this with Bovie cautery. The pelvis again was inspected and hemostasis was confirmed. The rectus muscle bellies were inspected and noted to be hemostatic prior to fascial closure. The fascia was closed with 0 PDS suture x2 in a running continuous fashion. The subcutaneous tissue was irrigated and noted to be hemostatic after Bovie cauterization and the areas of oozing and the skin was then closed with darin. The surgery was terminated. No anesthetic or surgical complications occurred. Job ID: [id number]
[2019-07-28] MEDS: Communication Order-Pharmacy FS SCH (07:48)
[2019-07-28 07:51] VITALS: BMI 25.7
[2019-07-28] MEDS: Ondansetron PF 4 MG/2 ML Vial IVP PRN ×2 (08:19→15:29)
[2019-07-28] MEDS ORDERED: HYDROcodone/Acetaminophen 5/325 mg Tablet PO PRN (09:09)
[2019-07-28] MEDS ORDERED: Simethicone Chewable 80 MG TAB PO PRN (09:09)
[2019-07-28] MEDS: Docusate Calcium (SURFAK) 240 MG CAP PO SCH ×2 (11:21→20:51)
[2019-07-28] MEDS: Ferrous Sulfate 325 MG TAB PO SCH (11:21)
[2019-07-28] MEDS: Prenatal Vitamin 1 TAB PO SCH (11:22)
[2019-07-28] MEDS: Ketorolac Tromethamine 30 MG/ML VIAL IVP SCH ×2 (12:25→18:35)
[2019-07-28] MEDS: Ibuprofen 800 MG TAB PO SCH ×2 (13:00→20:51)
[2019-07-29] MEDS: Ferrous Sulfate 325 MG TAB PO SCH ×3 (00:46→20:37)
[2019-07-29] MEDS: Ketorolac Tromethamine 30 MG/ML VIAL IVP SCH ×2 (04:05→04:07)
[2019-07-29] MEDS: Communication Order-Pharmacy FS SCH (04:07)
[2019-07-29] MEDS: Ibuprofen 800 MG TAB PO SCH ×3 (04:26→20:37)
[2019-07-29] MEDS: HYDROcodone/Acetaminophen 5/325 mg Tablet PO PRN ×3 (04:28→23:24)
[2019-07-29 05:34] LABS: Hemoglobin 10.6 g/dL (12.0-16.0); Mean Corpuscular HGB CONC 33.4 g/dL (32.0-36.0); Mean Corpuscular Hemoglobin 30.9 pg (27.0-31.0); Mean Corpuscular Volume 92.7 fL (78.0-98.0); Mean Platelet Volume 9.3 fL (7.4-10.4); Platelet Count 203 thou/uL (130-400); RBC Distribution Width 13.3 % (11.5-14.5); Red Blood Cell (RBC) Count 3.45 mill/uL (4.20-5.40); White Blood Cell (WBC) Count 17.4 thou/uL (4.8-10.8)
--- NOTE | 2019-07-29 07:30 | PDOC.PP ---
Post Progress Note Post Day #: 1 Subjective: Working on breast feeding. PO intake tolerated: yes Flatus: yes Ambulation: yes Vital Signs (12 hours) Temp Pulse Resp BP 07/29/19 05:00 97.9 F 92 16 101/58 L 07/29/19 00:09 98.3 F 90 14 110/60 07/28/19 20:43 98.4 F 97 16 115/71 Weight Weight 136 lb Result Diagrams: 07/29/19 05:19 Additional Labs: Post Labs Blood Type A POSITIVE 07/28/19 05:49 Hep Bs Antigen Non-Reactive S/CO (NonReactive) 07/28/19 04:46 - Assessment/Plan Post op day 1 from primary c/s for labor with myomectomy. Doing well. Routine care..
[2019-07-29] MEDS ORDERED: Adacel (T-DAP) 0.5 ML SYRINGE IM ONE (09:00)
[2019-07-29] MEDS: Prenatal Vitamin 1 TAB PO SCH (09:33)
[2019-07-29] MEDS: Docusate Calcium (SURFAK) 240 MG CAP PO SCH ×2 (09:34→20:37)
[2019-07-30] MEDS: Ibuprofen 800 MG TAB PO SCH ×3 (06:52→21:57)
--- NOTE | 2019-07-30 08:54 | PDOC.PP ---
Post Progress Note Post Day #: 2 Subjective: Working on breast feeding. Otherwise; doing well. PO intake tolerated: yes Flatus: yes Ambulation: yes Vital Signs (12 hours) Temp Pulse Resp BP 07/30/19 04:00 97.9 F 89 18 111/63 Weight Weight 136 lb - Physical Examination Abdominal: no distention, appropriately TTP Extremities: negative homans (B) Result Diagrams: 07/29/19 05:19 Additional Labs: Post Labs Blood Type A POSITIVE 07/28/19 05:49 Hep Bs Antigen Non-Reactive S/CO (NonReactive) 07/28/19 04:46 - Assessment/Plan Post op day 2 from primary c/s due to prior myomectomy-labor at 37 weeks. D/c in Am....Routine care.
[2019-07-30] MEDS: HYDROcodone/Acetaminophen 5/325 mg Tablet PO PRN ×2 (08:56→23:10)
[2019-07-30] MEDS: Prenatal Vitamin 1 TAB PO SCH (08:56)
[2019-07-30] MEDS: Docusate Calcium (SURFAK) 240 MG CAP PO SCH ×2 (08:56→21:57)
[2019-07-30] MEDS: Communication Order-Pharmacy FS SCH (08:56)
[2019-07-30] MEDS: Ferrous Sulfate 325 MG TAB PO SCH ×2 (09:00→21:57)
[2019-07-31] MEDS: Ibuprofen 800 MG TAB PO SCH ×2 (05:55→14:21)
--- NOTE | 2019-07-31 08:03 | PDOC.PP ---
Post Progress Note Post Day #: 3 Subjective: Ready to go home. going better. PO intake tolerated: yes Flatus: yes Ambulation: yes Vital Signs (12 hours) Temp Pulse Resp BP BP Pulse Ox 07/31/19 03:03 98.2 F 78 20 103/58 L 07/30/19 23:09 98.5 F 80 16 122/71 97 07/30/19 20:22 98.2 F 91 14 116/78 97 Weight Weight 136 lb - Physical Examination Abdominal: + bowel sounds, appropriately TTP Extremities: negative homans (B) Result Diagrams: 07/29/19 05:19 Additional Labs: Post Labs Blood Type A POSITIVE 07/28/19 05:49 Hep Bs Antigen Non-Reactive S/CO (NonReactive) 07/28/19 04:46 - Assessment/Plan post op day 3-doing well. d/c home . darin out 08/04
[2019-07-31] MEDS: Docusate Calcium (SURFAK) 240 MG CAP PO SCH (08:29)
[2019-07-31] MEDS: Prenatal Vitamin 1 TAB PO SCH (08:29)
[2019-07-31] MEDS: Ferrous Sulfate 325 MG TAB PO SCH (08:30)
[2019-07-31] MEDS: Communication Order-Pharmacy FS SCH (08:30)
[2019-07-31] MEDS ORDERED: diphenhydrAMINE 25 MG CAP PO PRN (09:13)
[2019-07-31 09:43] VITALS: BP 124/66; TEMP 98.1
[2019-07-31] MEDS: HYDROcodone/Acetaminophen 5/325 mg Tablet PO PRN (14:23)
== END 2019-07-31 16:40 | disposition home or self-care (01) | DRG 788 ==
LOC: L&D/OP 03:00 → L&D 04:29 → 3SW 09:33
PROVIDERS: ADMIT Obstetrics & Gynecology; ATTEND Obstetrics & Gynecology
PROC: 10D00Z1 Extraction of Products of Conception, Low, Open Approach (ICD-10-PCS; principal; 2019-07-28)
DX: O99.62 Diseases of the digestive system complicating childbirth (principal); Z3A.37 37 weeks gestation of pregnancy; Z37.0 Single live birth; K21.9 Gastro-esophageal reflux disease without esophagitis; N85.8 Other specified noninflammatory disorders of uterus; O34.03 Maternal care for unspecified congenital malformation of uterus, third trimester
CPT/HCPCS: 36415; 36600; 85027; 86780; 86850; 86900; 86901; 87340; 99285; J1100; J1885; J2274; J2405; J2550; J2590; Q0163